=== PATIENT | female | born 1960 | race Caucasian/White ===

== ENCOUNTER 2020-10-12 08:59 | Emergency (ER) | payer MEDICAID, OTHER ==
[~2020-10-12] VITALS: Ht 162.6 cm; Wt 74.8 kg
[~2020-10-12 08:59] MED LIST: AMLO-213 PO; ATOR10TA PO; BENA10TA74 PO; CALC500T52 PO; ERGO500014 PO; HYDR50TA3 PO; LORA-259 PO; MIRT15TA7 PO; SUMA50TA PO
[2020-10-12] MEDS ORDERED: KETOROLAC TROMETHAMINE INJ 60 MG/2 ML VIAL IM ONE (09:30)
[2020-10-12 09:58] VITALS: BP 135/81
[2020-10-12] MEDS ORDERED: KETOROLAC TROMETHAMINE INJ 30 MG/ML VIAL ONE (10:01)
--- NOTE | 2020-10-12 10:13 | NUR ---
Patient discharged to home in stable condition. Written and verbal after care instructions given. Patient verbalizes understanding of instruction.
== END 2020-10-12 10:13 | disposition home or self-care (01) ==
LOC: ER 09:05
DX: M54.5 Low back pain (principal); I10 Essential (primary) hypertension; G43.909 Migraine, unspecified, not intractable, without status migrainosus; Z98.890 Other specified postprocedural states; Z79.899 Other long term (current) drug therapy
CPT/HCPCS: 96372; 99283; J1885

== ENCOUNTER 2023-01-21 09:00 | Emergency (ER) | payer MEDICAID ==
[~2023-01-21] VITALS: Ht 160 cm; Wt 63.5 kg
[~2023-01-21 09:00] MED LIST changes: -HYDR50TA3 PO; +HYDR50TA4 PO; +MIRT-90 PO; -MIRT15TA7 PO
--- NOTE | 2023-01-21 10:30 | NUR ---
BIBS FOR INGROWN TOENAIL. A/O X 3, TOLERATING WELL ON ROOM AIR.
--- NOTE | 2023-01-21 10:42 | NUR ---
Patient discharged to home in stable condition. Written and verbal after care instructions given. Patient verbalizes understanding of instruction.
[2023-01-21 10:43] VITALS: BP 124/84
== END 2023-01-21 10:44 | disposition home or self-care (01) ==
LOC: ER 09:05
DX: L60.0 Ingrowing nail (principal); M79.674 Pain in right toe(s); I10 Essential (primary) hypertension; G43.909 Migraine, unspecified, not intractable, without status migrainosus; Z90.710 Acquired absence of both cervix and uterus; Z79.899 Other long term (current) drug therapy